=== PATIENT | male | born 1990 | race Hispanic/Latino ===

== ENCOUNTER 2022-10-13 18:46 | Emergency (ER) | payer OTHER ==
[~2022-10-13] VITALS: Ht 162.6 cm; Wt 66.0 kg
[2022-10-13 18:59] VITALS: BP 129/91
[2022-10-13 19:15] VITALS: BP 126/89
[2022-10-13] MEDS ORDERED: KEFLEX500 MG PO (19:17)
[2022-10-13] MEDS ORDERED: VOLTAREN75 MG PO (19:17)
[2022-10-13 19:30] VITALS: BP 112/74
[2022-10-13 19:32] VITALS: BP 112/74
== END 2022-10-13 19:42 | disposition home or self-care (01) | DRG 603 ==
LOC: ED 18:46
DX: L03.012 Cellulitis of left finger (principal); L03.011 Cellulitis of right finger; M77.8 Other enthesopathies, not elsewhere classified